=== PATIENT | female | born 1945 | race Caucasian/White ===

== ENCOUNTER → 2016-09-25 | Outpatient (CLI) | payer OTHER ==
--- NOTE | ~2016-09-25 | MY29 ---
[facility] A Service of [facility] RADIOLOGY TEXT RESULTS PATIENT: LINA WILKINS LOCATION: [facility] : 43 UNIT #: [id number] AGE: [address]: Connie Hernandez MD SEX: F ORDER DR: [id number] [facility] [address] [place], [place] [address] [id number] O MR#: [id number] Acc #: [id number] NAME: LINA WILKINS : 1945 SEX: F STUDY DATE/TIME: 09/25/2016 11:31 UNIT: [facility] ROOM: STUDY DESCRIPTION: MY JENN SCREENING W/ CAD BILAT Attending Physician: Connie Hernandez M.D. Referring Physician: Connie Hernandez M.D. Ordering Physician: Connie Hernandez M.D. Primary Care Physician: Connie Hernandez M.D. MEDICAL IMAGING REPORT This report is preliminary unless electronic signature is present EXAM Screening mammogram of 09/25 INDICATIONS 70-year-old with no personal or family history of breast cancer. No current complaints. TECHNIQUE Routine digital screening views of both breasts were obtained. Study was reviewed with an FDA-approved CAD device. COMPARISON 09/09/2015, 07/16/2014 FINDINGS Breast parenchyma shows scattered fibroglandular densities. No new masses or suspicious microcalcifications are seen. Benign calcifications are stable in both breasts. Benign intramammary lymph nodes in both upper outer quadrants are also stable. IMPRESSION Benign mammogram. Routine screen in 1 year is recommended. Patient's over the age of 40 are entered into a reminder system with target due date for the next mammogram. A result letter will be sent to the patient. BIRADS: 2 Benign findings. Dictated by... Viral Loaiza Jr., M.D. [facility] A Service of [facility] RADIOLOGY TEXT RESULTS PATIENT: LINA WILKINS LOCATION: [facility] : 43 UNIT #: [id number] AGE: [address]: Connie Hernandez MD SEX: F ORDER DR: THIS IS AN ELECTRONICALLY VERIFIED REPORT Viral Loaiza Jr., M.D. at 09/26/2016 7:20 AM RLK/kana TD: 09/25/2016 20:45 JOB #: [id number] MEDICAL IMAGING REPORT Page 1 of 1 COPY
== END | disposition home or self-care (01) ==
LOC: CWCC 09-21 15:00
DX: Z12.31 Encounter for screening mammogram for malignant neoplasm of breast (principal)
CPT/HCPCS: G0202